=== PATIENT | male | born 1960 | race Caucasian/White ===

== ENCOUNTER 2017-03-06 00:40 | Emergency (ER) | payer OTHER ==
[~2017-03-06] VITALS: Ht 172.7 cm; Wt 65.1 kg
[2017-03-06 00:37] VITALS: TEMP 37; Ht 172.7 cm; Wt 65.1 kg
[~2017-03-06 00:40] MED LIST: ALBU18002 INH; ALBUAER2 INH; BENZ-89 PO; CILO100T PO; CITA10TA8 PO; CLOP1TAB15 PO; HYDR25CA PO; PALI234I IM; PERP4TAB37 PO; SENN-65 PO; TIOT1SPR INH
[2017-03-06 00:46] VITALS: O2SAT 95
--- NOTE | 2017-03-06 01:00 | EMERGENCY ROOM VISIT NOTE ---
History Report prepared by Celia: Phillip Love Under the Supervision of: Dr. Ric Carballo M.D. First contact with patient: 00:50 Chief Complaint: CHEST PAIN Stated Complaint: CHEST PAIN/SHORTNESS OF BREATH Nursing Triage Summary: Patient presents ALS for evaluation of midsternal chest pain x several months/years. Patient is currently homelss. Had interaction with PD and told them he had chest pain. PBT: 0.00 GCS: 15 LLE noted to be red, swollen, and warm to the touch. History of Present Illness The patient is a 56 year old male who presents to the Emergency Room with complaints of intermittent chest pain for the past two years. The pain was rated 10/10 earlier tonight but is currently resolved. He denies any associated symptoms. The patient was in an altercation with police earlier tonight when he told them that he has been having chest pain, which prompted them to bring him to the ED. He notes some pain in his left calf, which is also red. He has a blister on his left great toe that he attributes to walking. The patient is from [place]. He was just kicked out of the local homeless care home. Source of History: patient Onset: two years ago Position: chest Symptom Intensity: 10/10 Timing: intermittent Note: No associated symptoms. Review of Systems See HPI for pertinent positives & negatives. A total of 10 systems reviewed and were otherwise negative. Past Medical & Surgical Medical Problems: (1) GERD (gastroesophageal reflux disease) (2) No known allergies Family History Patient reports no known family medical history. Social History Smoking Status: Current Every Day Smoker Marital Status: single Housing Status: other (homeless) Occupation Status: unemployed Current/Historical Medications Scheduled Albuterol (Ventolin Hfa), 2 PUFF INH BID Albuterol Sulfate (Proair Respiclick), 2 PUFFS INH BID Benztropine Mesylate (Cogentin), 1 MG PO BID Cephalexin Monohydrate (Keflex), 500 MG PO QID Cilostazol (Pletal), 100 MG PO BID Citalopram Hydrobromide (Celexa), 10 MG PO DAILY Clopidogrel (Plavix), 75 MG PO DAILY Hydroxyzine Pamoate (Vistaril), 25 MG PO TID Paliperidone Palmitate (Invega Sustenna), 1 SYR IM MONTHLY Perphenazine (Trilafon), 4 MG PO BID Perphenazine (Trilafon), 8 MG PO QPM Senna/Docusate Sod (Senokot S), 1 TAB PO DAILY Tiotropium Naponee Monohydrate (Spiriva Respimat), 1 PUFF INH BID Allergies Coded Allergies: No Known Allergies (Unverified , 08/15/16) Physical Exam Vital Signs Date Time Temp Pulse Resp B/P Pulse Ox O2 Delivery O2 Flow Rate FiO2 03/06/17 01:53 69 16 124/71 96 Room Air 03/06/17 00:46 95 Room Air 03/06/17 00:37 Room Air 03/06/17 00:37 37.0 86 18 136/65 99 Room Air Physical Exam GENERAL: Patient is unkempt, malodorous, in no acute distress. HEENT: No acute trauma, normocephalic atraumatic, mucous membranes moist, no nasal congestion, no scleral icterus. NECK: No stridor, no adenopathy, no meningismus, trachea is midline. LUNGS: No dyspnea. Clear to auscultation and equal bilaterally. No wheeze, no rhonchi. HEART: Regular rate and rhythm. No murmurs, rubs, gallops appreciated. ABDOMEN: Soft, nontender, bowel sounds positive, no masses appreciated, no peritonitis. BACK: No midline tenderness, no CVA tenderness EXTREMITIES: Erythema of the left lower leg and foot from toes to mid calf. There is mild tenderness over the left calf. Blood blister over the left great toe with surrounding erythema. NEUROLOGIC: Alert and oriented, no acute motor or sensory deficits, no focal weakness, cranial nerves grossly intact. SKIN: No rash, no jaundice, no diaphoresis. Medical Decision & Procedures ER Provider Diagnostic Interpretation: X ray results are stated below per my interpretation: Chest: 1 view: No infiltrate, no effusion, normal cardiac border. Radiology results and stated below per my review and radiologist interpretation: US VENOUS LEFT LOWER EXTREMITY: No evidence of deep vein thrombosis. Radiologist: Chester Segura MD. Laboratory Results 03/06/17 00:25 Red Blood Count 4.35, Mean Corpuscular Volume 94.5, Mean Corpuscular Hemoglobin 33.1, Mean Corpuscular Hemoglobin Concent 35.0, Mean Platelet Volume 9.8, Neutrophils (%) (Auto) 67.8, Lymphocytes (%) (Auto) 16.3, Monocytes (%) (Auto) 11.3, Eosinophils (%) (Auto) 4.0, Basophils (%) (Auto) 0.3, Neutrophils # (Auto ) 6.33, Lymphocytes # (Auto) 1.52, Monocytes # (Auto) 1.06, Eosinophils # (Auto ) 0.37, Basophils # (Auto) 0.03 03/06/17 00:25 Test 03/06/17 00:25 White Blood Count 9.34 K/uL (4.8-10.8) Red Blood Count 4.35 M/uL (4.7-6.1) Hemoglobin 14.4 g/dL (14.0-18.0) Hematocrit 41.1 % (42-52) Mean Corpuscular Volume 94.5 fL (80-100) Mean Corpuscular Hemoglobin 33.1 pg (25-34) Mean Corpuscular Hemoglobin Concent 35.0 g/dl (32-36) Platelet Count 247 K/uL (130-400) Mean Platelet Volume 9.8 fL (7.4-10.4) Neutrophils (%) (Auto) 67.8 % Lymphocytes (%) (Auto) 16.3 % Monocytes (%) (Auto) 11.3 % Eosinophils (%) (Auto) 4.0 % Basophils (%) (Auto) 0.3 % Neutrophils # (Auto) 6.33 K/uL (1.4-6.5) Lymphocytes # (Auto) 1.52 K/uL (1.2-3.4) Monocytes # (Auto) 1.06 K/uL (0.11-0.59) Eosinophils # (Auto) 0.37 K/uL (0-0.5) Basophils # (Auto) 0.03 K/uL (0-0.2) RDW Standard Deviation 51.2 fL (36.4-46.3) RDW Coefficient of Variation 14.7 % (11.5-14.5) Immature Granulocyte % (Auto) 0.3 % Immature Granulocyte # (Auto) 0.03 K/uL (0.00-0.02) Anion Gap 7.0 mmol/L (3-11) Est Creatinine Clear Calc Drug Dose 77.8 ml/min Estimated GFR () 98.5 Estimated GFR (Non- 84.9 BUN/Creatinine Ratio 16.7 (10-20) Calcium Level 9.4 mg/dl (8.5-10.1) Troponin I < 0.015 ng/ml (0-0.045) Laboratory results as reviewed by me. Medications Administered Medications (Trade) Dose Ordered Sig/Claude Route Start Time Stop Time Status Last Admin Dose Admin Cephalexin Monohydrate (Keflex Cap) 500 mg NOW ONCE PO 03/06/17 01:45 03/06/17 01:46 DC 03/06/17 01:56 500 MG ECG Indication: chest pain Rate (beats per minute): 80 Rhythm: normal sinus Findings: no acute ischemic change, no ectopy ED Course 0052: The patient was evaluated in room A3. A complete history and physical exam was performed. 0145: Keflex 500 mg PO. 0205: The patient currently feels fine and would like to leave. Discussed care for cellulitis with him as well as the need for follow up with a primary care physician. Medical Decision Differential: Cardiac Ischemia (STEMI, NSTEMI, Unstable Angina, etc), Aortic Dissection, Arrhythmia, Pulmonary Embolism, Pneumonia, Pneumothorax, MSK, Infectious, Pericarditis/Myocarditis, Esophageal Rupture, Gastrointestinal, amongst other pathologies entertained. 56 yr old homeless male who was in altercation of some sort with police when he noted chest pains that have been ongoing for years. Patient states he always has them. Was found to have cellulitis left lower leg likely from opened blister left great toe. Will treat with Keflex. Discussed monitoring in hospital given his history though he is not willing to do this. Stressed importance of taking medications. Given [facility] contact info. Aware he can return at any time if worsening or other concerns. US negative for DVT. Negative EKG, neg Trop and thus with months/years of symptoms I do not feel this is ACS. Impression Primary Impression: Substernal precordial chest pain Additional Impressions: Chronic chest pain Cellulitis of left lower leg Scribe Attestation The scribe's documentation has been prepared under my direction and personally reviewed by me in its entirety. I confirm that the note above accurately reflects all work, treatment, procedures, and medical decision making performed by me. Departure Information Dispostion Home / Self-Care Prescriptions Cephalexin Monohydrate (KEFLEX) 500 Mg Cap 500 MG PO QID, #28 CAP Prov: Ric Carballo M.D. 03/06/17 Referrals [facility] Forms HOME CARE DOCUMENTATION FORM, IMPORTANT VISIT INFORMATION Patient Instructions Cellulitis - [facility], Chest Pain - [facility], [facility] Additional Instructions Please have your leg rechecked in the next few days. Return if worsening or other concerns. Your blood pressure was elevated today and thus you should get it rechecked by your primary care provider and discuss further treatment options as needed. Problem Qualifiers
[2017-03-06 01:02] LABS: BASO % 0.3 %; BASO ABS # 0.03 K/uL (0-0.2); COMPLETE YES; HEMATOCRIT 41.1 % (42-52); IG% 0.3 %; LYMPH % 16.3 %; LYMPH ABS # 1.52 K/uL (1.2-3.4); MEAN CELL VOLUME 94.5 fL (80-100); MEAN CORPUSCULAR HEMOGLOBIN 33.1 pg (25-34); MEAN PLATELET VOLUME 9.8 fL (7.4-10.4); MONO % 11.3 %; NEUT % 67.8 %; PLATELET COUNT 247 K/uL (130-400); RED BLOOD COUNT 4.35 M/uL (4.7-6.1); WHITE BLOOD COUNT 9.34 K/uL (4.8-10.8)
[2017-03-06 01:20] LABS: BLOOD UREA NITROGEN 17 mg/dl (7-18); BUN/CREATININE RATIO 16.7 (10-20); CALCIUM 9.4 mg/dl (8.5-10.1); CARBON DIOXIDE 31 mmol/L (21-32); CHLORIDE 107 mmol/L (98-107); GLUCOSE 145 mg/dl (70-99); POTASSIUM 3.9 mmol/L (3.5-5.1); SODIUM 145 mmol/L (136-145)
[2017-03-06] MEDS ORDERED: CEPH500C2 PO (01:27)
[2017-03-06] MEDS ORDERED: CEPHALEXIN MONOHYDRATE 250 MG CAP PO ONE (01:45)
[2017-03-06 01:53] VITALS: BP 124/71; PULSE 69; O2SAT 96
--- NOTE | 2017-03-06 06:57 | DIAGNOSTIC IMAGING REPORT ---
CHEST ONE VIEW PORTABLE CLINICAL HISTORY: Chest Pain dyspnea COMPARISON STUDY: 08/15/2016 FINDINGS: The bones soft tissues and hemidiaphragms are normal. The cardiomediastinal silhouette is normal. The lungs are clear. The pulmonary vasculature is normal. IMPRESSION: Negative chest. Electronically signed by: José Miguel Krueger M.D. 03/06/2017 6:55 AM Dictated Date/Time: 03/06/2017 6:54 AM
--- NOTE | 2017-03-06 06:57 | DIAGNOSTIC IMAGING REPORT ---
Venous Doppler left leg LEFT VENOUS DOPP LOWER EXT UNILAT CLINICAL HISTORY: left calf pain, erythema TECHNIQUE: Venous Doppler COMPARISON STUDY: None FINDINGS: Normal study IMPRESSION: Normal study Electronically signed by: José Miguel Krueger M.D. 03/06/2017 6:55 AM Dictated Date/Time: 03/06/2017 6:55 AM
== END 2017-03-06 02:20 | disposition home or self-care (01) ==
LOC: EDBD 00:40 → C.EDA 00:41
DX: R07.2 Precordial pain (principal); G89.29 Other chronic pain; L03.116 Cellulitis of left lower limb; Z59.0 Homelessness; K21.9 Gastro-esophageal reflux disease without esophagitis; F17.210 Nicotine dependence, cigarettes, uncomplicated; Z79.02 Long term (current) use of antithrombotics/antiplatelets; Z79.899 Other long term (current) drug therapy

== ENCOUNTER 2018-04-24 13:32 | Emergency (ER) | payer OTHER ==
[~2018-04-24] VITALS: Ht 165.1 cm; Wt 65.6 kg
[~2018-04-24 13:32] MED LIST changes: +ALBINS/ INH; -ALBU18002 INH; -ALBUAER2 INH; +AZIT250T PO; -BENZ-89 PO; +BISA1TAB15 PO; +BISM262S7 PO; -CILO100T PO; -CITA10TA8 PO; +CITA20TA4 PO; -CLOP1TAB15 PO; +DOCU-94 PO; -HYDR25CA PO; +NEOM1SOL15 OTB; -PALI234I IM; -PERP4TAB37 PO; +PRED10TA PO; +PRLSR20 PO; +RISP0.5T10 PO; +RISP1TAB68 PO; +RISP3TAB12 PO; -SENN-65 PO; -TIOT1SPR INH; +TRAZ50TA35 PO
[2018-04-24 13:44] VITALS: TEMP 36.6; Ht 165.1 cm; Wt 65.6 kg
[2018-04-24] MEDS ORDERED: OPTIRAY 320 IV PRN (14:15)
[2018-04-24 14:36] LABS: BASO % 1.2 %; BASO ABS # 0.06 K/uL (0-0.2); EOS % 17.1 %; EOS ABS # 0.89 K/uL (0-0.5); HEMATOCRIT 38.2 % (42-52); HEMOGLOBIN 12.9 g/dL (14.0-18.0); IG# 0.01 K/uL (0.00-0.02); LYMPH % 36.7 %; LYMPH ABS # 1.91 K/uL (1.2-3.4); MEAN CORPUSCULAR HEMOGLOBIN 31.1 pg (25-34); MEAN CORPUSCULAR HGB CONC 33.8 g/dl (32-36); MEAN PLATELET VOLUME 9.6 fL (7.4-10.4); MONO % 8.4 %; MONO ABS # 0.44 K/uL (0.11-0.59); NEUT % 36.4 %; PLATELET COUNT 226 K/uL (130-400); RED CELL DISTRIBUTION WIDTH SD 43.6 fL (36.4-46.3); WHITE BLOOD COUNT 5.21 K/uL (4.8-10.8)
[2018-04-24 14:36] LABS: ISTAT CREATININE 0.8 mg/dl (0.6-1.3); ISTAT IONIZED CALCIUM 1.16 mmol/l (1.12-1.32); ISTAT POTASSIUM 4.1 mEq/L (3.3-5.0)
[2018-04-24] MEDS ORDERED: RISP4TAB7 PO (14:53)
[2018-04-24] MEDS ORDERED: RISP2TAB22 PO (14:53)
[2018-04-24] MEDS ORDERED: MIRT15TA2 PO (14:53)
[2018-04-24] MEDS ORDERED: PERP1TAB10 PO (14:53)
[2018-04-24] MEDS ORDERED: BENZ0.5T28 PO (14:53)
[2018-04-24 14:56] LABS: ALBUMIN 3.4 gm/dl (3.4-5.0); CALCIUM 9.1 mg/dl (8.5-10.1); CREATININE 0.86 mg/dl (0.60-1.40); POTASSIUM 4.1 mmol/L (3.5-5.1); TOTAL PROTEIN 6.8 gm/dl (6.4-8.2)
--- NOTE | 2018-04-24 14:58 | EMERGENCY ROOM VISIT NOTE ---
History Report prepared by Celia: Mojgan Avendaño Under the Supervision of: Dr. Harinder London M.D. First contact with patient: 14:01 Chief Complaint: TESTICULAR PAIN Stated Complaint: HERNIA Nursing Triage Summary: c/o right sided testicular pain and swelling x 1 month. hx hernia. History of Present Illness The patient is a 57 year old male who presents to the Emergency Room with complaints of worsening testicular pain starting 1 month ago. The patient has a history of hernia. He has had increased pain recently. He is having increased swelling to the right testicle. He has had intermittent SOB. He denies any nausea, vomiting, or fever. He denies any trauma or injury. He has a history of asthma. Source of History: patient Onset: 1 month ago Position: other (testicular) Quality: other (swelling, pain) Timing: worsening Associated Symptoms: + SOB, No fevers, No nausea, No vomiting Review of Systems See HPI for pertinent positives & negatives. A total of 10 systems reviewed and were otherwise negative. Past Medical & Surgical Medical Problems: (1) GERD (gastroesophageal reflux disease) (2) No known allergies Family History Diabetes mellitus FH: heart disease FH: lung disease FHx: cancer Hypertension Social History Smoking Status: Former Smoker Housing Status: other (group home) Current/Historical Medications Scheduled Benztropine Mesylate (Benztropine Mesylate), 1 TAB PO BID Mirtazapine Soltab (Remeron Soltab), 15 MG PO HS Qpxkidki-Edamojhon-Ev Otic (Cortisporin Otic), 1 DROP OTB QID Omeprazole (Prilosec), 20 MG PO DAILY Perphenazine (Trilafon), 2 MG PO HS Risperidone (Risperdal), 2 MG PO QD Risperidone (Risperdal), 4 MG PO HS Trazodone Hcl (Trazodone), 50 MG PO HS Scheduled PRN Albuterol Sulf (Proventil 0.083% 2.5MG/3ML), 2.5 MG INH TID PRN for Shortness of Breath Bisacodyl (Bisacodyl), 5 MG PO DAILY PRN for Constipation Docusate Sodium (Colace), 300 MG PO HS PRN for Constipation Allergies Coded Allergies: No Known Allergies (Unverified , 04/24/18) Physical Exam Vital Signs Date Time Temp Pulse Resp B/P (MAP) Pulse Ox O2 Delivery O2 Flow Rate FiO2 04/24/18 15:35 64 18 115/76 96 Room Air 04/24/18 13:44 36.6 64 18 118/74 96 Room Air Physical Exam General: Non-ill appearing middle age white male, poor historian, in no acute distress. HEENT: Normal cephalic atraumatic. Pupils are equal round and reactive to light. Extraocular movements are intact. Oropharynx is pink with moist mucous membranes. No swelling of the mouth lips or tongue. Neck: Supple with a midline trachea. No meningeal signs or stiffness, no JVD or bruits. No Stridor. Chest: Clear to auscultation bilaterally. No wheezes or rhonchi. No increased work of breathing. Heart: regular rate and rhythm. Abdomen: Soft nontender, nondistended without rebound guarding or rigidity. : Indurated right scrotal mass likely hernia. No redness, warmth, or tenderness. Extremities: No cyanosis clubbing or edema. No calf tenderness or assymetry Spine/Back. Non tender to palpation. No CVA tenderness Skin: Good turgor without rashes. Neurologic exam: Cranial nerves two through 12 are intact. Motor and sensation are intact and symmetrical throughout. Medical Decision & Procedures ER Provider Diagnostic Interpretation: Radiology results as stated below per my review and radiologist interpretation: CT SCAN OF THE ABDOMEN AND PELVIS WITH IV CONTRAST CLINICAL HISTORY: Right inguinal hernia. COMPARISON STUDY: Abdominal CT dated 01/22/2018. TECHNIQUE: Following the IV administration of 93 cc of Optiray 320, CT scan of the abdomen and pelvis is performed from the lung bases to the proximal femora. Images are reviewed in the axial, sagittal, and coronal planes. IV contrast was administered without complication. A dose lowering technique was utilized adhering to the principles of ALARA. Examination is degraded by motion artifact. CT DOSE: 380.69 mGycm FINDINGS: Lung bases: The heart is normal in size and without pericardial effusion. The lung bases are clear. Liver: The contrast-enhanced liver is normal in size, contour, and attenuation. There is no intrahepatic biliary ductal dilatation. The hepatic veins and portal veins are patent. Gallbladder: Contracted. Spleen: Normal in size and attenuation. Pancreas: Unremarkable. Adrenal glands: Unremarkable. Kidneys: The contrast enhanced kidneys are normal in size and without hydronephrosis. The kidneys enhance symmetrically. Foci of cortical scarring are present in both kidneys. A subcentimeter cortical hypodensity in the left lower pole likely represents a cyst but is too small for definitive characterization. Abdominal vasculature: The abdominal aorta is normal in course and caliber noting moderate atherosclerotic calcification. Bowel: There is a large right internal hernia contains a loop of small bowel. No bowel obstruction is seen. There is advanced colonic diverticulosis without CT evidence of acute diverticulitis. Moderate to severe constipation is noted. The stomach is distended with ingested material. The appendix is well-visualized and normal. Peritoneum: There is no intraperitoneal free air or abdominal ascites. There is a small fat-containing umbilical hernia. Lymphadenopathy: None. Pelvic viscera: The prostate is mildly enlarged and heterogeneous. The bladder wall is thickened and trabeculated suggesting chronic outlet obstruction. There is a large right hernia which contains a loop of small bowel. A fat-containing left inguinal hernia is noted. Skeletal structures: The skeletal structures appear osteopenic. There is mild lumbosacral spondylosis. No lytic or blastic lesions are seen. There are mild superior endplate compression deformities of T10, T11, and L1. IMPRESSION: 1. There is a large right inguinal hernia which contains a nonobstructed loop of small bowel. No bowel obstruction is seen. 2. Moderate to severe constipation. 3. Advanced colonic diverticulosis without CT evidence of acute diverticulitis. 4. There is a fat-containing left inguinal hernia. 5. Additional findings as above. Electronically signed by: Michael Delarosa M.D. 04/24/2018 3:05 PM Dictated Date/Time: 04/24/2018 2:55 PM Laboratory Results 04/24/18 14:15 Red Blood Count 4.15, Mean Corpuscular Volume 92.0, Mean Corpuscular Hemoglobin 31.1, Mean Corpuscular Hemoglobin Concent 33.8, Mean Platelet Volume 9.6, Neutrophils (%) (Auto) 36.4, Lymphocytes (%) (Auto) 36.7, Monocytes (%) (Auto) 8.4, Eosinophils (%) (Auto) 17.1, Basophils (%) (Auto) 1.2, Neutrophils # (Auto ) 1.90, Lymphocytes # (Auto) 1.91, Monocytes # (Auto) 0.44, Eosinophils # (Auto ) 0.89, Basophils # (Auto) 0.06 04/24/18 14:15 Test 04/24/18 14:15 04/24/18 14:21 White Blood Count 5.21 K/uL (4.8-10.8) Red Blood Count 4.15 M/uL (4.7-6.1) Hemoglobin 12.9 g/dL (14.0-18.0) Hematocrit 38.2 % (42-52) Mean Corpuscular Volume 92.0 fL (80-100) Mean Corpuscular Hemoglobin 31.1 pg (25-34) Mean Corpuscular Hemoglobin Concent 33.8 g/dl (32-36) Platelet Count 226 K/uL (130-400) Mean Platelet Volume 9.6 fL (7.4-10.4) Neutrophils (%) (Auto) 36.4 % Lymphocytes (%) (Auto) 36.7 % Monocytes (%) (Auto) 8.4 % Eosinophils (%) (Auto) 17.1 % Basophils (%) (Auto) 1.2 % Neutrophils # (Auto) 1.90 K/uL (1.4-6.5) Lymphocytes # (Auto) 1.91 K/uL (1.2-3.4) Monocytes # (Auto) 0.44 K/uL (0.11-0.59) Eosinophils # (Auto) 0.89 K/uL (0-0.5) Basophils # (Auto) 0.06 K/uL (0-0.2) RDW Standard Deviation 43.6 fL (36.4-46.3) RDW Coefficient of Variation 13.0 % (11.5-14.5) Immature Granulocyte % (Auto) 0.2 % Immature Granulocyte # (Auto) 0.01 K/uL (0.00-0.02) Est Creatinine Clear Calc Drug Dose 84.4 ml/min Estimated GFR () 113.1 Estimated GFR (Non- 97.6 BUN/Creatinine Ratio 13.6 (10-20) Calcium Level 9.1 mg/dl (8.5-10.1) Total Bilirubin 0.4 mg/dl (0.2-1) Direct Bilirubin 0.1 mg/dl (0-0.2) Aspartate Amino Transf (AST/SGOT) 22 U/L (15-37) Alanine Aminotransferase (ALT/SGPT) 33 U/L (12-78) Alkaline Phosphatase 50 U/L (45-117) Total Protein 6.8 gm/dl (6.4-8.2) Albumin 3.4 gm/dl (3.4-5.0) Lipase 168 U/L (73-393) Bedside Hemoglobin 12.9 g/dl (14.0-18.0) Bedside Hematocrit 38 % (42-52) Bedside Sodium 142 mEq/L (135-144) Bedside Potassium 4.1 mEq/L (3.3-5.0) Bedside Chloride 99 mEq/L (101-112) Bedside Total CO2 33 mEq/l (24-31) Anion Gap 16.0 mmol/L (16-25) Bedside Blood Urea Nitrogen 12 mg/dl (7-18) Bedside Creatinine 0.8 mg/dl (0.6-1.3) Bedside Glucose (other) 102 mg/dl (70-99) Bedside Ionized Calcium (Darrian) 1.16 mmol/l (1.12-1.32) Laboratory studies as stated above per my review. ED Course 1403: Past medical records reviewed. The patient was evaluated in room A4B, and a complete history and physical examination were performed. 1529: I discussed the patient's case with ALPHONSO Klein general surgery. He will speak with his attending and call back. 1534: General surgery recommends the patient follow up in the office next week. 1537: Upon reevaluation, the patient is resting comfortably. I discussed the results and treatment plan with him. He verbalized agreement of the treatment plan. He will follow up with surgery. The patient was discharged home. Medical Decision Differentials include, but are not limited to; hernia, bowel obstruction, infection, testicular mass, electrolyte or metabolic abnormality. This patient comes in as described above. He was placed in room A4. He has swelling in his right groin there is a large mass consistent with a hernia likely he has had this before in fact was seen back in January for this it appears unchanged today apparently according to him this is been going on for months. he has had no redness or warmth or fever or chills. He looks well is not significant tender I did do a CAT scan to rule out any incarcerated hernia. Multiple blood tests was obtained he has no fever or white count to suggest infection. He was reassessed frequently. CAT scan shows a hernia there is no evidence of bowel obstruction he has no evidence suggest incarceration or strangulation it appears to be more of a chronic issue. I did discuss case with surgery and they reviewed the CAT scans. The feel he can go home and will follow up with him this week and schedule elective repair. There is no evidence of to suggest the need for emergent repair but I told the patient that he will likely need surgery in the near future and to return if: he has increasing pain, redness or warmth, worsening of symptoms, change in size, any new problems or concerns. Medication Reconcilliation Current Medication List: was personally reviewed by me Blood Pressure Screening Patient's blood pressure: Normal blood pressure Blood pressure disposition: Did not require urgent referral Consults Time Called: 1525 Consulting Physician: Ugo Urban [facility]-C [facility] Returned Call: [phone] I discussed the patient's case with him. He will speak with his attending and call back. Impression Primary Impression: Right inguinal hernia Scribe Attestation The scribe's documentation has been prepared under my direction and personally reviewed by me in its entirety. I confirm that the note above accurately reflects all work, treatment, procedures, and medical decision making performed by me. Departure Information Dispostion Home / Self-Care Referrals No Doctor, Assigned (PCP) Mario Washington M.D. Forms HOME CARE DOCUMENTATION FORM, IMPORTANT VISIT INFORMATION, WORK / SCHOOL INSTRUCTIONS Patient Instructions [facility] Additional Instructions Rest Drink plenty of fluids Return if increasing pain or swelling, redness or warmth, fever or chills, vomiting, any new problems or concerns Follow-up with surgeon(Dr. Washington or his colleagues) in the office this week for recheck. He will need surgery at some point in the future.
--- NOTE | 2018-04-24 15:06 | DIAGNOSTIC IMAGING REPORT ---
CT SCAN OF THE ABDOMEN AND PELVIS WITH IV CONTRAST CLINICAL HISTORY: Right inguinal hernia. COMPARISON STUDY: Abdominal CT dated 01/22/2018. TECHNIQUE: Following the IV administration of 93 cc of Optiray 320, CT scan of the abdomen and pelvis is performed from the lung bases to the proximal femora. Images are reviewed in the axial, sagittal, and coronal planes. IV contrast was administered without complication. A dose lowering technique was utilized adhering to the principles of ALARA. Examination is degraded by motion artifact. CT DOSE: 380.69 mGycm FINDINGS: Lung bases: The heart is normal in size and without pericardial effusion. The lung bases are clear. Liver: The contrast-enhanced liver is normal in size, contour, and attenuation. There is no intrahepatic biliary ductal dilatation. The hepatic veins and portal veins are patent. Gallbladder: Contracted. Spleen: Normal in size and attenuation. Pancreas: Unremarkable. Adrenal glands: Unremarkable. Kidneys: The contrast enhanced kidneys are normal in size and without hydronephrosis. The kidneys enhance symmetrically. Foci of cortical scarring are present in both kidneys. A subcentimeter cortical hypodensity in the left lower pole likely represents a cyst but is too small for definitive characterization. Abdominal vasculature: The abdominal aorta is normal in course and caliber noting moderate atherosclerotic calcification. Bowel: There is a large right internal hernia contains a loop of small bowel. No bowel obstruction is seen. There is advanced colonic diverticulosis without CT evidence of acute diverticulitis. Moderate to severe constipation is noted. The stomach is distended with ingested material. The appendix is well-visualized and normal. Peritoneum: There is no intraperitoneal free air or abdominal ascites. There is a small fat-containing umbilical hernia. Lymphadenopathy: None. Pelvic viscera: The prostate is mildly enlarged and heterogeneous. The bladder wall is thickened and trabeculated suggesting chronic outlet obstruction. There is a large right hernia which contains a loop of small bowel. A fat-containing left inguinal hernia is noted. Skeletal structures: The skeletal structures appear osteopenic. There is mild lumbosacral spondylosis. No lytic or blastic lesions are seen. There are mild superior endplate compression deformities of T10, T11, and L1. IMPRESSION: 1. There is a large right inguinal hernia which contains a nonobstructed loop of small bowel. No bowel obstruction is seen. 2. Moderate to severe constipation. 3. Advanced colonic diverticulosis without CT evidence of acute diverticulitis. 4. There is a fat-containing left inguinal hernia. 5. Additional findings as above. Electronically signed by: Michael Delarosa M.D. 04/24/2018 3:05 PM Dictated Date/Time: 04/24/2018 2:55 PM
[2018-04-24 15:35] VITALS: BP 115/76; PULSE 64; O2SAT 96
== END 2018-04-24 15:47 | disposition home or self-care (01) ==
LOC: C.EDB 13:33 → C.EDA 15:47
DX: K40.90 Unilateral inguinal hernia, without obstruction or gangrene, not specified as recurrent (principal); K21.9 Gastro-esophageal reflux disease without esophagitis